=== PATIENT | female | born 1945 | race African-American/Black ===

== ENCOUNTER → 2018-10-19 | Day surgery (SDC) | payer OTHER ==
--- NOTE | 2018-10-21 16:49 | PATH ---
Surgical Pathology Report Patient Name: BEVERLY GUERIN [facility]. Rec. #: [id number] /Age/Gender: 1945 (Age: 73) / F Account: [id number] Location: [facility] Taken: 10/19/2018 Received: 10/19/2018 Reported: 10/21/2018 Physicians: Mateo Benito M.D. Specimen(s) Received LEFT AXILLA CORE BIOPSY Clinical History Ultrasound findings: Suspicious History of right breast cancer Final Diagnosis LEFT AXILLA, CORE BIOPSY: FRAGMENTS OF LYMPH NODE TISSUE WITH REACTIVE LYMPHOID FOLLICLES. NEGATIVE FOR CARCINOMA. Comment: Immunohistochemical stain AE1/AE3 performed and interpreted at [facility] is negative. Electronically Signed Raven Galindo M.D. Gross Description Received in formalin labeled "left axillary lymph node biopsy," is a 1.8 x 1.5 x 0.2 cm aggregate of multiple esquivel-yellow, irregular to cylindrical portions of fibroadipose tissue. The formalin is filtered and the specimen is entirely submitted in one cassette. Time to formalin fixation: 2 minutes Total formalin fixation time: Approximately 29 hours. DL/10/20/2018 saudi10/20/2018
== END | disposition home or self-care (01) ==
LOC: FRADUS-SUR 11:12
PROVIDERS: ATTEND Surgery Surgical Oncology
PROC: 07B63ZX Excision of Left Axillary Lymphatic, Percutaneous Approach, Diagnostic (ICD-10-PCS; principal; 2018-10-19)
PROC: BH47ZZZ Ultrasonography of Upper Extremity (ICD-10-PCS; 2018-10-19)
DX: R59.0 Localized enlarged lymph nodes (principal)
CPT/HCPCS: 19083; 38505; 76942; 87899; 88305-TC; 88342-TC; A4648

== ENCOUNTER 2019-07-05 05:46 | Day surgery (SDC) | payer OTHER ==
[2019-06-29 10:13] VITALS: BMI 35.6
[2019-07-05] MEDS ORDERED: ceFAZolin SODIUM 1 GM VIAL ONE (07:03)
[2019-07-05] MEDS ORDERED: MIDAZOLAM HCL 2 MG/2 ML SINGLE DOSE VIAL ONE (07:03)
[2019-07-05] MEDS ORDERED: SODIUM CHLORIDE 0.9% P/F 10 ML VIAL IJ ONE (07:03)
[2019-07-05] MEDS ORDERED: fentaNYL CITRATE 250 MCG/5 ML VIAL ONE (07:03)
[2019-07-05] MEDS ORDERED: PROPOFOL 20 ML ONE ×3 (07:03→11:22)
[2019-07-05] MEDS ORDERED: ROCURONIUM BROMIDE 50 MG/5 ML SYRINGE ONE (07:05)
[2019-07-05] MEDS ORDERED: SUCCINYLCHOLINE CHLORIDE 200 MG/10 ML SYRINGE ONE (07:06)
[2019-07-05] MEDS ORDERED: ePHEDrine SULFATE 50 MG/1 ML AMPULE ONE (08:43)
[2019-07-05] MEDS ORDERED: METOPROLOL TARTRATE 5 MG/5 ML VIAL ONE (09:10)
[2019-07-05] MEDS ORDERED: NITROGLYCERIN 2% OINTMENT - 1GM PACKET TD ONE (12:01)
[2019-07-05] MEDS ORDERED: GLYCOPYRROLATE 0.2 MG/1 ML VIAL ONE (12:32)
[2019-07-05] MEDS ORDERED: NEOSTIGMINE METHYLSULFATE 0.5 MG/ML - 10 ML MDV ONE (12:32)
[2019-07-05] MEDS ORDERED: PROMETHAZINE HCL 25 MG/1 ML VIAL IVPUSH PRN (13:38)
[2019-07-05] MEDS ORDERED: ONDANSETRON 4 MG/2 ML VIAL IVPUSH PRN (13:38)
[2019-07-05] MEDS ORDERED: oxyCODONE HCL 5 MG TABLET PO PRN ×4 (13:38→13:39)
[2019-07-05] MEDS ORDERED: ONDANSETRON 4 MG/2 ML VIAL IVPB PRN (13:39)
--- NOTE | 2019-07-05 13:43 | OP ---
Operative Note - Note: Operative Date: 07/05/19 Pre-Operative Diagnosis: breast deformity and asymmety Operation: left breast reduction and right breast revision of reconstruction Findings: above Surgeon: Franko Guy Vacuum Cleaner Operator: Daniela Lepe Anesthesia: General Operative Report Dictated: Yes
[2019-07-05] MEDS ORDERED: LACTATED RINGERS SOLUTION 1,000 ML IV SCH (13:45)
[2019-07-05 17:24] VITALS: BP 134/68; PULSE 74; TEMP 97.6
--- NOTE | 2019-07-05 22:31 | OP ---
DATE OF OPERATION: 07/05/2019 TITLE OF PROCEDURE: Right-sided delayed revision of partial mastectomy defect reconstruction and left side balancing breast reduction. ATTENDING SURGEON: Franko Guy MD CONSERVATION OR HERITAGE ARCHITECT: SANTA Rai ANESTHESIA: General endotracheal. Patient was in the holding area. She was marked for a modified Cole-type pattern breast reduction with a lateral pedicle on the left side. On the right side, she was marked for excision of the lumpectomy defect in inferior pole with a rearrangement of tissues to reconstruct a breast mound. The nipples were to be translocated on both sides. Nipples were sited at 22 cm from the sternal notch bilaterally. The patient was given 2 g of Ancef preoperatively. She was awake and aware of all incisions and resulting scars. Risks, benefits, and alternatives were thoroughly discussed. She was brought to the operating room and placed in supine position. A Arellano catheter was placed, removed at the end of the procedure. Timeout was called. Patient, procedure, sites, and sides were verified after anesthesia was given. At this point, she was prepped and draped in standard surgical fashion. The right side was addressed first. A superolateral pedicle was developed and de-epithelialized at this point. The inferior pole mastectomy defect and scar were then fully excised. The residual tissue was then mobilized in a pattern similar to a reduction mammoplasty. Additional glandular tissue was removed both superiorly and medially in order to reconstruct the breast. The hemostasis was meticulously achieved. The nipple was then translocated into a new position. Skin was tailor tacked, and attention is directed toward the contralateral side. On the left side, a reduction mammoplasty was then performed. A superolateral pedicle was de-epithelialized. A 45-mm cookie cutter was used to trace the nipple-areolar complex which had been done on the right side as well. The pedicle was de-epithelialized with the exception of the nipple-areolar complex. The glandular tissue was then excised superiorly, inferiorly, and medially. The pedicle was then rotated into the defect. The superior skin flap was then undermined to accommodate the pedicle. Hemostasis then meticulously achieved and skin was then tailor tacked with a series of interrupted kate and half-buried, mattress 2-0 nylon suture at the inverted T point. Patient was brought to a seated upright position where symmetry of size and shape was found to be excellent. The size 10 flat MILADYS drains were brought out through the lateral extent of the incisions. The drains were secured with a 2-0 silk drain suture. At this point, the total weight of resected tissue was on the left 745 g; on the right was 653 g. Nipples were bleeding from the dermal edges bilaterally. All skin edges appeared to be bleeding healthily. Closure was then performed with a series of interrupted, buried, deep dermal 3-0 Monocryl suture, followed by running subcuticular 3-0 Monocryl suture around the nipples, vertical limbs and horizontal limbs. The drains were placed to bulb suction. Dressings were applied with Steri-Strips, 4 x 4 gauze, and surgical bra. Patient awakened from anesthesia, having tolerated the procedure well. Arellano catheter was removed, transferred to recovery without complication. Arline [id number]
--- NOTE | 2019-07-07 07:38 | SURG ---
Surgery Margin Clerk Note Margin Clerk: Daniela Lepe PA-C (Suzy) Date of Service: 07/05/19 Diagnosis: Deformity of reconstructed breast Procedure: Right- sided delayed revision of partial mastectomy defect reconstruction and left side balancing breast reduction I was present for the entirety of the operative procedure. For further detail, please refer to operative report. Visit type - Case Type Case Type: Scheduled - Emergency Emergency Visit: No - New patient This patient is new to me today: Yes Date on this admission: 07/07/19 - Critical Care Critical Care patient: No
--- NOTE | 2019-07-07 16:12 | PATH ---
Surgical Pathology Report Patient Name: BEVERLY GUERIN Med. Rec. #: [id number] /Age/Gender: 1945 (Age: 74) / F Account: [id number] Location: [facility] Taken: 07/05/2019 Received: 07/05/2019 Reported: 07/07/2019 Physicians: Franko Guy Specimen(s) Received A: RIGHT BREAST TISSUE B: LEFT BREAST TISSUE Clinical History Deformity of reconstructed breast Final Diagnosis A. RIGHT BREAST TISSUE, REDUCTION: BENIGN BREAST TISSUE SHOWING FOCI OF FAT NECROSIS WITH STROMAL FIBROSIS AND ASSOCIATED DYSTROPHIC CALCIFICATIONS. REMAINING BREAST TISSUE SHOWS FEW FOCI OF COLUMNAR CELL CHANGE. MICROCYSTS AND ASSOCIATED CALCIFICATIONS. SKIN WITH NO PATHOLOGIC FINDINGS. B. LEFT BREAST TISSUE, REDUCTION: BENIGN BREAST TISSUE SHOWING FOCAL COLUMNAR CELL CHANGE WITH FEW ASSOCIATED CALCIFICATIONS AND STROMAL FIBROSIS. SKIN WITH NO PATHOLOGIC FINDINGS. Electronically Signed Maryuri Epstein M.D. Gross Description A. Received in formalin, labeled "right breast tissue" is a 26.7 x 10.5 x 3.5 cm portion of fibrofatty tissue surfaced by dark esquivel unremarkable skin. Also received is an additional aggregate of portions of fibrofatty tissue and skin measuring 10.2 x 8 x 1.7 cm. Sectioning the fibrofatty tissue reveals a 0.6 x 0.5 x 0.5 cm circumscribed yellow-esquivel calcified nodule. The remaining tissue is comprised predominantly of adipose tissue with few scattered fibrous foci and streaks. Vehicle Service Agent sections are submitted in seven cassettes with the calcified nodule in #6&7. B. Received in formalin, labeled "left breast tissue" is a 30.5 x 11.6 x 4.2 cm portion of fibroadipose tissue surfaced by dark esquivel unremarkable skin. Also received is an additional aggregate of portions of fibrofatty tissue and skin measuring 10.5 x 8.6 x 1.8 cm. Sectioning reveals predominantly adipose tissue with few white fibrotic foci and streaks. Vehicle Service Agent sections are submitted in seven cassettes.
== END 2019-07-05 17:23 | disposition home or self-care (01) ==
LOC: FASU 05:46
PROVIDERS: ATTEND Plastic Surgery
PROC: 0HBU0ZZ Excision of Left Breast, Open Approach (ICD-10-PCS; 2019-07-05)
PROC: 0HBT0ZZ Excision of Right Breast, Open Approach (ICD-10-PCS; principal; 2019-07-05 08:56)
DX: N65.0 Deformity of reconstructed breast (principal); N65.1 Disproportion of reconstructed breast
CPT/HCPCS: 88305-TC; 94760

== ENCOUNTER 2021-02-12 04:45 | Day surgery (SDC) | payer OTHER ==
[2021-02-09 09:27] VITALS: BMI 36.6
[2021-02-12] MEDS ORDERED: IBUPROFEN 400 MG TABLET (FP) PO PRN (07:54)
[2021-02-12] MEDS ORDERED: ACETAMINOPHEN 325 MG TABLET (FP) PO PRN (07:54)
[2021-02-12] MEDS ORDERED: HYDROmorphone HCl 2 MG/ML VIAL ONE (09:11)
[2021-02-12] MEDS ORDERED: PROPOFOL 20 ML ONE (09:12)
[2021-02-12] MEDS ORDERED: ROCURONIUM BROMIDE 50 MG/5 ML SYRINGE ONE (09:12)
[2021-02-12] MEDS ORDERED: DEXAMETHASONE SOD PHOSPHATE 4 MG/1 ML VIAL ONE (09:14)
[2021-02-12] MEDS ORDERED: KETOROLAC TROMETHAMINE 30 MG/1 ML VIAL ONE (09:14)
[2021-02-12] MEDS ORDERED: LIDOCAINE HCL/PF 2% SDV 5ML VIAL ONE (09:17)
[2021-02-12] MEDS ORDERED: oxyCODONE HCL 5 MG TABLET PO PRN ×2 (11:38)
[2021-02-12] MEDS ORDERED: LACTATED RINGERS SOLUTION 1,000 ML IV SCH (11:45)
[2021-02-12] MEDS ORDERED: ONDANSETRON 4 MG/2 ML VIAL IVPUSH PRN (12:00)
[2021-02-12 13:29] VITALS: BP 111/54; PULSE 80; TEMP 98.4
== END 2021-02-12 14:33 | disposition home or self-care (01) ==
LOC: JASU-SURG 04:45
PROVIDERS: ATTEND Obstetrics & Gynecology
PROC: 0UDB8ZX Extraction of Endometrium, Via Natural or Artificial Opening Endoscopic, Diagnostic (ICD-10-PCS; 2021-02-12)
PROC: 0UB98ZZ Excision of Uterus, Via Natural or Artificial Opening Endoscopic (ICD-10-PCS; principal; 2021-02-12 10:00)
PROC: 0UN98ZZ Release Uterus, Via Natural or Artificial Opening Endoscopic (ICD-10-PCS; 2021-02-12 10:00)
DX: N95.0 Postmenopausal bleeding (principal); D25.0 Submucous leiomyoma of uterus; N85.6 Intrauterine synechiae
CPT/HCPCS: 86850; 86900; 86901; 88305-TC; 94760

== ENCOUNTER 2022-03-07 04:20 | Day surgery (SDC) | payer OTHER ==
[2022-03-04 12:26] VITALS: BMI 37.3
[2022-03-07 09:43] VITALS: TEMP 98
[2022-03-07 11:49] VITALS: BP 130/80; PULSE 77
== END 2022-03-07 10:58 | disposition home or self-care (01) ==
LOC: JASU-ENDO 04:20
PROVIDERS: ATTEND Internal Medicine Gastroenterology
PROC: 0DJD8ZZ Inspection of Lower Intestinal Tract, Via Natural or Artificial Opening Endoscopic (ICD-10-PCS; principal; 2022-03-07 08:45)
DX: Z12.11 Encounter for screening for malignant neoplasm of colon (principal); Z80.0 Family history of malignant neoplasm of digestive organs

== ENCOUNTER 2023-04-23 13:01 | Emergency (ER) | payer OTHER ==
[2023-04-23 14:03] VITALS: RESP 18; TEMP 97.5; BMI 36.9
[2023-04-23] MEDS ORDERED: BACITRACIN ZINC 15 GM TUBE TOPICAL OINTMENT ONE (15:49)
[2023-04-23] MEDS ORDERED: BACITRACIN 0.9 GM PACKET TP ONE (15:55)
[2023-04-23 16:27] VITALS: BP 165/89; PULSE 87
== END 2023-04-23 16:26 | disposition home or self-care (01) ==
LOC: JER 13:01
DX: S50.312A Abrasion of left elbow, initial encounter (principal); M25.512 Pain in left shoulder; W01.0XXA Fall on same level from slipping, tripping and stumbling without subsequent striking against object, initial encounter; Y93.89 Activity, other specified; Y92.513 Shop (commercial) as the place of occurrence of the external cause
CPT/HCPCS: 71045-TC-FY; 73030-TC-LT-FY; 99284-25